=== PATIENT | female | born 1940 | race Caucasian/White ===

== ENCOUNTER 2016-12-02 14:50 | Outpatient (CLI) | payer BC ==
[2016-12-02 15:40] LABS: #Basophils 0.1 thou/uL (0.0-0.2); #Eosinphils 0.5 thou/uL (0.0-0.7); #Lymphocytes 3.4 thou/uL (1.20-3.40); #Monocytes 1.7 thou/uL (0.11-0.59); #Neutrophils 9.8 thou/uL (1.40-6.50); %Basophils 0.9 % (0.0-1.0); %Eosinophils 3.4 % (0.0-10.0); %Lymphocytes 21.7 % (21.0-51.0); %Monocytes 11.1 % (0.0-10.0); %Neutrophils 62.8 % (42.0-75.0); Hemoglobin 13.2 g/dL (12.0-16.0); Mean Corpuscular HGB CONC 32.5 g/dL (32.0-36.0); Mean Corpuscular Hemoglobin 31.1 pg (27.0-31.0); Mean Corpuscular Volume 95.7 fl (81.0-99.0); Mean Platelet Volume 6.8 fL (7.4-10.4); Platelet Count 326 thou/uL (130-400); RBC Distribution Width 12.4 % (11.5-14.5); Red Blood Cell (RBC) Count 4.24 mill/uL (4.20-5.40); White Blood Cell (WBC) Count 15.7 thou/uL (4.8-10.8)
[2016-12-02 15:59] LABS: ALT (SGPT) 88 U/L (8-55); AST (SGOT) 120 U/L (5-34); Albumin 3.8 g/dL (3.4-4.8); Alkaline Phosphatase 78 U/L (40-150); Anion Gap 16 mmol/L (10-20); BUN (Urea Nitrogen) 15 mg/dL (9.8-20.1); Bilirubin, Total 0.6 mg/dL (0.2-1.2); Calc. Creatinine Clearance 0 mL/min (70-130); Calcium 9.7 mg/dL (7.8-10.44); Carbon Dioxide 23 mmol/L (23-31); Chloride 105 mmol/L (98-107); Estimated GFR-MDRD 57; Glucose 114 mg/dL (83-110); Protein, Total 6.8 g/dL (6.0-8.3); Sodium 140 mmol/L (136-145)
== END 2016-12-02 14:51 | disposition home or self-care (01) ==
LOC: NAVSJIPCSP 14:50 → NAV LAB 14:51
PROVIDERS: ATTEND Internal Medicine
DX: I11.9 Hypertensive heart disease without heart failure (principal); D72.828 Other elevated white blood cell count; R60.0 Localized edema
CPT/HCPCS: 36415; 80053; 83880; 85025

== ENCOUNTER 2017-02-23 10:09 | Emergency (ER) | payer BC, MEDICARE ==
[2017-02-23 11:34] LABS: #Basophils 0.2 thou/uL (0.0-0.2); #Eosinphils 0.5 thou/uL (0.0-0.7); #Lymphocytes 3.4 thou/uL (1.20-3.40); #Monocytes 2.1 thou/uL (0.11-0.59); #Neutrophils 10.2 thou/uL (1.40-6.50); %Basophils 1.2 % (0.0-1.0); %Eosinophils 3.2 % (0.0-10.0); %Lymphocytes 20.9 % (21.0-51.0); %Monocytes 12.7 % (0.0-10.0); Hemoglobin 12.9 g/dL (12.0-16.0); Mean Corpuscular Hemoglobin 30.7 pg (27.0-31.0); Mean Platelet Volume 6.7 fL (7.4-10.4); Platelet Count 331 thou/uL (130-400); RBC Distribution Width 11.8 % (11.5-14.5); White Blood Cell (WBC) Count 16.5 thou/uL (4.8-10.8)
[2017-02-23 11:49] LABS: Anion Gap 13 mmol/L (10-20); BUN (Urea Nitrogen) 16 mg/dL (9.8-20.1); Calc. Creatinine Clearance 0 mL/min (70-130); Calcium 10.5 mg/dL (7.8-10.44); Carbon Dioxide 29 mmol/L (23-31); Chloride 104 mmol/L (98-107); Estimated GFR-MDRD 53; Glucose 102 mg/dL (83-110); Sodium 141 mmol/L (136-145)
[2017-02-23] MEDS ORDERED: Clindamycin 300 MG/2 ML VIAL ONE (12:39)
--- NOTE | 2017-02-23 14:13 | RAD ---
LEFT TIBIA TWO VIEWS: HISTORY: Trauma to tibia/fibula. FINDINGS: Chronic appearing periosteal change is seen along the tibia and fibula. Prominent calcaneal spurs a re present. There are arthritic changes of the knee and lesser changes of the ankle. There are no signs of fracture. IMPRESSION: No evidence of fracture. POS: [facility]
== END 2017-02-23 13:05 | disposition left against medical advice (07) ==
LOC: NAV ERS 10:09
DX: S80.12XA Contusion of left lower leg, initial encounter (principal); L03.116 Cellulitis of left lower limb; K21.9 Gastro-esophageal reflux disease without esophagitis; K58.9 Irritable bowel syndrome, unspecified; E66.9 Obesity, unspecified; F41.9 Anxiety disorder, unspecified; Z87.891 Personal history of nicotine dependence; Z79.899 Other long term (current) drug therapy; W22.03XA Walked into furniture, initial encounter; Y93.01 Activity, walking, marching and hiking
CPT/HCPCS: 36415; 80048; 85025; 96372; J3490

== ENCOUNTER 2018-06-05 09:43 | Outpatient (CLI) | payer MEDICARE ==
--- NOTE | 2018-06-05 12:54 | RAD ---
LUMBAR SPINE BENDING MINIMUM 4 VIEWS: Date: 06/05/18 HISTORY: Lumbar radiculopathy. COMPARISON: MRI dated 06/03/18. FINDINGS: There is Grade I L4 over L5 anterolisthesis which does not have significant translation with flexion or extension. Mild L3-4, L4-5, and L5-S1 disc space narrowing. Moderate facet arthropathy L4-5. IMPRESSION: No significant translation with flexion or extension. POS: [facility]
== END 2018-06-05 09:44 | disposition home or self-care (01) ==
LOC: NAV RAD 09:43
PROVIDERS: ATTEND Family Medicine
DX: M54.16 Radiculopathy, lumbar region (principal)
CPT/HCPCS: 72120

== ENCOUNTER 2018-12-02 01:03 | Emergency (ER) | payer MEDICARE ==
[2018-12-02 01:48] LABS: #Basophils 0.1 thou/uL (0.0-0.2); #Eosinphils 0.7 thou/uL (0.0-0.7); #Lymphocytes 4.1 thou/uL (1.20-3.40); #Monocytes 1.5 thou/uL (0.11-0.59); #Neutrophils 7.4 thou/uL (1.40-6.50); %Eosinophils 4.9 % (0.0-10.0); %Lymphocytes 29.6 % (21.0-51.0); %Monocytes 11.1 % (0.0-10.0); %Neutrophils 53.5 % (42.0-75.0); Hemoglobin 12.9 g/dL (12.0-16.0); Mean Corpuscular Volume 96.8 fL (78.0-98.0); Mean Platelet Volume 6.6 fL (7.4-10.4); Platelet Count 298 thou/uL (130-400); RBC Distribution Width 12.7 % (11.5-14.5); Red Blood Cell (RBC) Count 4.31 mill/uL (4.20-5.40); White Blood Cell (WBC) Count 13.8 thou/uL (4.8-10.8)
[2018-12-02 02:03] LABS: ALT (SGPT) 34 U/L (8-55); AST (SGOT) 31 U/L (5-34); Albumin 3.9 g/dL (3.4-4.8); Alkaline Phosphatase 71 U/L (40-150); Anion Gap 15 mmol/L (10-20); BUN (Urea Nitrogen) 11 mg/dL (9.8-20.1); Bilirubin, Total 0.3 mg/dL (0.2-1.2); CK (CPK) 30 U/L (29-168); Calc. Creatinine Clearance 0 mL/min (70-130); Calcium 9.6 mg/dL (7.8-10.44); Carbon Dioxide 26 mmol/L (23-31); Chloride 105 mmol/L (98-107); Estimated GFR-MDRD 53; Glucose 113 mg/dL (83-110); Lipase 18 U/L (8-78); Potassium 3.9 mmol/L (3.5-5.1); Protein, Total 6.9 g/dL (6.0-8.3); Sodium 142 mmol/L (136-145)
--- NOTE | 2018-12-02 07:47 | RAD ---
CHEST: HISTORY: Chest pain. COMPARISON: 09/23/2015 FINDINGS: Single view of the chest show normal sized cardiomediastinal silhouette. There is no evidence of cons olidation, mass, or pleural effusion. Degenerative changes are seen in the spine. IMPRESSION: No evidence of acute cardiopulmonary disease. POS: [facility]
--- NOTE | 2018-12-02 08:06 | CT ---
PRELIMINARY REPORTS/[facility]/AFTER HOURS PROCEDURE EXAM: CT Angiography Chest With Contrast EXAM DATE/TIME: 12/02/2018 2:21 AM CLINICAL HISTORY: 78 years old, female; Chest pain and sternal or substernal pain; Type not specified; Other: Chest, shlr, up to head; Prior surgery; Surgery date: 6+ months; Surgery type: Surgical history of appendectomy, surgical history of hysterectomy, ; patient HX: Patient says that she was sitting at computer and felt burning across her shoulders up to her head and felt faint, all within the last perry r. Also feels like the room is spinning with some discomfort in her lower chest/upper abdomen right under her lower sternum. Has had shingles in recent past. , Past medical history includes musculoskeletal disorder, fibromyalgia, TECHNIQUE: Imaging protocol: Axial computed tomographic angiography images of the chest with intravenous contrast. Coronal and sagittal reformatted images were created and reviewed. 3D rendering: MIP reconstructed images were created and reviewed. Radiation optimization: All CT scans at this facility use at least one of these dose optimization techniques: automated exposure control; mA and/or kV adjustment per patient size (includes targeted exams where dose is matched to clinical indication); or iterative reconstruction. Contrast material: ISOVUE 370; Contrast volume: 70 ml; Contrast route: RT AC; COMPARISON: No relevant prior studies available. FINDINGS: Pulmonary arteries: No pulmonary emboli. Aorta: No aortic dissection. Lungs: 1.9 x 1.5 cm focal atelectasis versus nodule in the right lower lobe. Pleural space: No pneumothorax. No pleural effusion. Heart: No pericardial effusion. Lymph nodes: No enlarged lymph nodes. Bones/joints: No acute fracture. Soft tissues: Unremarkable. IMPRESSION: 1. No aortic dissection. 2: No pulmonary emboli. 3: 1.9 x 1.5 cm focal atelectasis versus nodule in the right lower lobe. Consider followup exam(s) to exclude progression. EXAM: CT Angiography Abdomen With Contrast EXAM DATE/TIME: 12/02/2018 2:21 AM CLINICAL HISTORY: 78 years old, female; Chest pain and sternal or substernal pain; Type not specified; Other: Chest, shlr, up to head; Prior surgery; Surgery date: 6+ months; Surgery type: Surgical history of appendectomy, surgical history of hysterectomy, ; patient HX: Patient says that she was sitting at computer and felt burning across her shoulders up to her head and felt faint, all within the last perry r. Also feels like the room is spinning with some discomfort in her lower chest/upper abdomen right under her lower sternum. Has had shingles in recent past. , Past medical history includes musculoskeletal disorder, fibromyalgia, TECHNIQUE: Imaging protocol: Axial computed tomographic angiography images of the abdomen with intravenous contrast material. Coronal and sagittal reformatted images were created and reviewed. 3D rendering: MIP reconstructed images were created and reviewed. Radiation optimization: All CT scans at this facility use at least one of these dose optimization techniques: automated exposure control; mA and/or kV adjustment per patient size (includes targeted exams where dose is matched to clinical indication); or iterative reconstruction. Contrast material: ISOVUE 370; Contrast volume: 70 ml; Contrast route: RT AC; COMPARISON: No relevant prior studies available. FINDINGS: VASCULATURE: Aorta: No aortic aneurysm. No aortic dissection. Celiac trunk and mesenteric arteries: No occlusion or significant stenosis. Renal arteries: No occlusion or significant stenosis. ABDOMEN: Liver: No mass. Gallbladder and bile ducts: No calcified stones. No ductal dilation. Pancreas: No ductal dilation. Spleen: No acute findings. Adrenals: No mass. Kidneys and ureters: No hydronephrosis. Stomach and bowel: No obstruction. No mucosal thickening. Intraperitoneal space: No free air. No significant fluid collection. Bones/joints: Unremarkable. No acute fracture. No dislocation. Soft tissues: Unremarkable. Lymph nodes: Unremarkable. No enlarged lymph nodes. IMPRESSION: 1: No acute findings. 2: No aortic dissection. Thank you for allowing us to participate in the care of your patient. Dictated and Authenticated by: Schuyler Weston MD 12/02/2018 4:46 AM Central Time ([place] & [place]) FINAL REPORT EMERGENT AFTER-HOURS CT ANGIOGRAM THORAX AND ABDOMEN WITH IV CONTRAST AND 3D RECONSTRUCTIONS: HISTORY: Sternal and substernal chest pain. Burning sensation across shoulders, extending into head. Faint f eeling. Discomfort in upper abdomen. COMPARISON: None available. IMPRESSION: 1. Mild atherosclerotic vascular calcifications in the thoracic and abdominal aorta, but there is no evidence of an aortic aneurysm or dissection. 2. Nodular parenchymal density, right lower lobe, with associated linear density. This could be rel ated to atelectasis but, given nodular appearance, a mass in this region cannot be entirely excluded. Follow-up examination is recommended to ensure resolution. 3. The gallbladder is decompressed with increased density material in the gallbladder lumen, which c ould be related to gallbladder calculi. 4. Fat-containing umbilical hernia. 5. Multilevel degenerative changes in the thoracic and lumbar spine with slight grade 1 anterolisthe sis of L4 on L5, related to facet degenerative changes. 6. Findings are in agreement with the preliminary report by [facility]. Again, follow-up codi luation of the nodular and linear density, right lung base, is recommended. Transcribed Date/Time: 12/02/2018 8:19 AM
[2018-12-02] MEDS ORDERED: Iopamidol 370 76% 100 ML VIAL ONE (09:00)
== END 2018-12-02 03:30 | disposition short-term general hospital (02) ==
LOC: NAV ERS 01:03
DX: R07.9 Chest pain, unspecified (principal); I10 Essential (primary) hypertension; K21.9 Gastro-esophageal reflux disease without esophagitis; F41.9 Anxiety disorder, unspecified; Z87.891 Personal history of nicotine dependence; Z79.899 Other long term (current) drug therapy
CPT/HCPCS: 71045; 71275; 80053; 82550; 83690; 84484; 85025; 93005; Q9967

== ENCOUNTER 2021-07-13 09:21 | Outpatient (CLI) | payer MEDICARE | END 2021-07-13 09:22 | disposition home or self-care (01) | LOC: NAV CT 09:21 | PROVIDERS: ATTEND Family Medicine | DX: R91.1 Solitary pulmonary nodule (principal) | CPT/HCPCS: 71250 ==

== ENCOUNTER 2022-08-24 13:33 | Emergency (ER) | payer OTHER | END 2022-08-24 13:45 | disposition left against medical advice (07) | LOC: NAV ERS 13:33 | DX: Z53.29 Procedure and treatment not carried out because of patient's decision for other reasons (principal) ==

== ENCOUNTER 2023-10-21 13:47 | Emergency (ER) | payer OTHER ==
[2023-10-21 14:41] LABS: #Basophils 0.2 thou/uL (0.0-0.2); #Eosinphils 0.5 thou/uL (0.0-0.7); #Lymphocytes 3.1 thou/uL (1.20-3.40); #Monocytes 1.6 thou/uL (0.11-0.59); #Neutrophils 7.4 thou/uL (1.40-6.50); %Basophils 1.4 % (0.0-1.0); %Eosinophils 3.7 % (0.0-10.0); %Monocytes 12.7 % (0.0-10.0); %Neutrophils 58.3 % (42.0-75.0); Hematocrit 40.9 % (36.0-47.0); Hemoglobin 12.5 g/dL (12.0-16.0); Mean Corpuscular HGB CONC 30.7 g/dL (32.0-36.0); Mean Corpuscular Volume 94.6 fl (78.0-98.0); Mean Platelet Volume 6.5 fL (7.4-10.4); Platelet Count 276 10x3/uL (130-400); RBC Distribution Width 12.7 % (11.5-14.5); Red Blood Cell (RBC) Count 4.32 mill/uL (4.20-5.40); White Blood Cell (WBC) Count 12.7 10x3/uL (4.8-10.8)
[2023-10-21 15:00] LABS: ALT (SGPT) 20 U/L (8-55); AST (SGOT) 16 U/L (5-34); Albumin 4.1 g/dL (3.4-4.8); Alkaline Phosphatase 69 U/L (40-110); Anion Gap 14 mmol/L (10-20); BUN (Urea Nitrogen) 15 mg/dL (9.8-20.1); Bilirubin, Total 0.4 mg/dL (0.2-1.2); Calc. Creatinine Clearance 0 mL/min (70-130); Calcium 9.6 mg/dL (7.8-10.44); Carbon Dioxide 25 mmol/L (23-31); Chloride 106 mmol/L (98-107); Estimated GFR 61; Globulin 2.4 g/dL (2.4-3.5); Glucose 119 mg/dL (83-110); Potassium 3.9 mmol/L (3.5-5.1); Protein, Total 6.5 g/dL (5.8-8.1); Sodium 141 mmol/L (136-145)
[2023-10-21 15:01] LABS: Troponin I Less than 0.010 ng/mL (< 0.028)
== END 2023-10-21 16:03 | disposition left against medical advice (07) ==
LOC: NAV ERS 13:47
DX: R07.9 Chest pain, unspecified (principal); I10 Essential (primary) hypertension; Z79.899 Other long term (current) drug therapy
CPT/HCPCS: 71045; 80053; 83880; 84484; 85025; 93005; 94760